=== PATIENT | male | born 1945 | race Caucasian/White ===

== ENCOUNTER 2019-11-28 07:27 | Outpatient (RCR) | payer MEDICARE, SELFPAY ==
--- NOTE | 2019-10-03 12:27 | WPDWOUNDNOTE ---
Wound Care Note Date/Time: 10/03/19 12:27 History: Mr. Mcgraw is a 74-year-old male who presented to our office to be evaluated by Dr. Napier at the request of Dr. Davis of [place], [place], for a left lower leg skin lesion. The patient had noticed the lesion for about 4 months but denied any drainage since he first noticed it. The lesion was tender and it had recently increased in size prior to his initial evaluation. The patient does have a history of hypertension, diabetes, and hyperlipidemia, as well as previous excision of a benign lesion from his left forearm in 2016. He is currently taking Plavix due to a previous CABG and cardiac stents in 2008. No known family history of skin cancer. Has a history of frequent sun exposure to his skin. 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 Because the skin and surrounding tissues were so thick and woody Dr Napier was unable to approximate wound margins following the excision. These were brought in as best as possible with Nylon sutures and then silver rope applied in the wound. Eventually the decision was made to start wound VAC therapy to promote wound healing. He tolerated this therapy well but eventually this was stopped due to the decreasing depth of the wound. The wound VAC therapy was stopped and we started dressing changes with Katiuska dressing and overlying Mepilex transfer dressing with gauze roll on top. The patient is now presenting to the wound clinic for a dressing change and wound check today. He denies any changes in the past week and is having no pain to the area of the wound. He continues to wear the ADRIANNA wrap compression bandage. His is doing well with dressing changes and has no questions today. Wound approximation: No Wound width: 1.8 cm Wound length: 3.5 cm Wound depth: 0.2 cm Drainage: None Surrounding tissue appearance: Surrounding tissue is slightly dry in appearance but intact and healthy. No signs of infection. There is good epithelialization of the wound edges. Swelling in the left lower leg continues to improve. Patient is still wearing the compression adrianna wrap. Tunneling: None Percentage granulation tissue: 100% Treatment/Procedures: Dressing change and wound inspection today. Dressings: Applied Katiuska dressing with overlying Mepilex transfer and gauze wrap with compression ADRIANNA wrap over the dressing on lower leg. Assessment and Plan Assessment and plan (1) Wound of left lower extremity: Code(s): S81.802A - Unspecified open wound, left lower leg, initial encounter Status: Acute Assessment and Plan: Assessment: There is an open wound to the left lower leg which is continuing to heal well after wound VAC therapy was stopped and changed to Katiuska dressings. The length has decreased in size by 0.5 cm since his last wound clinic visit. There are no signs of infection and he continues to do well with local wound care. Plan: Continue daily dressing changes of Katiuska covered by a Mepilex transfer and gauze wrap daily. ADRIANNA wrap for compression over left lower leg. Wound care nurses are going to order compression stockings for the patient today. F/u with Dr. Napier or myself in 2 weeks. Follow-up in the wound clinic with the nurses again in 1 week. Serial f/u every 6 months to check for lymph nodes and any recurrence in the wound bed although pathology showed complete excision.
--- NOTE | 2019-10-10 12:41 | WPDWOUNDNOTE ---
Wound Care Note Date/Time: 10/10/19 12:20 History: Mr. Mcgraw is a 74-year-old male who presented to our office to be evaluated by Dr. Napier at the request of Dr. Davis of [place], [place], for a left lower leg skin lesion. The patient had noticed the lesion for about 4 months but denied any drainage since he first noticed it. The lesion was tender and it had recently increased in size prior to his initial evaluation. The patient does have a history of hypertension, diabetes, and hyperlipidemia, as well as previous excision of a benign lesion from his left forearm in 2016. He is currently taking Plavix due to a previous CABG and cardiac stents in 2008. No known family history of skin cancer. Has a history of frequent sun exposure to his skin. 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 Because the skin and surrounding tissues were so thick and woody Dr Napier was unable to approximate wound margins following the excision. These were brought in as best as possible with Nylon sutures and then silver rope applied in the wound. Eventually the decision was made to start wound VAC therapy to promote wound healing. He tolerated this therapy well but eventually this was stopped due to the decreasing depth of the wound. The wound VAC therapy was stopped and we started dressing changes with Katiuska dressing and overlying Mepilex transfer dressing with gauze roll on top. The patient is now presenting to the wound clinic for a dressing change and wound check today. He denies any changes in the past week and is having no pain to the area of the wound. He continues to wear the ADRIANNA wrap compression bandage. His is doing well with dressing changes and has no questions today. Wound approximation: No Wound width: 1.4 cm Wound length: 2.8 cm Wound depth: 0.2 cm Drainage: None Surrounding tissue appearance: Surrounding tissue is intact and healthy. No signs of infection. There is good epithelialization of the wound edges. Swelling in the left lower leg continues to improve. Patient is still wearing the compression adrianna wrap. Tunneling: None Percentage granulation tissue: 100% Treatment/Procedures: Dressing change and wound inspection today. Dressings: Katiuska dressing with overlying Mepilex transfer and gauze wrap with compression ADRIANNA wrap over the dressing on the lower leg. Ordered compression stockings today. Assessment and Plan Assessment and plan (1) Wound of left lower extremity: Qualifiers: Encounter type: subsequent encounter Qualified Code(s): S81.802D - Unspecified open wound, left lower leg, subsequent encounter Code(s): S81.802A - Unspecified open wound, left lower leg, initial encounter Status: Acute Assessment and Plan: Assessment: There is an open wound to the left lower leg which is continuing to heal well with local wound care and Katiuska dressings. The length and width have decreased in size since his last wound clinic visit. There are no signs of infection and he continues to do well with local wound care. Plan: Today we discussed the options of continuing local wound care versus applying a skin graft to this wound. Dr. Napier discussed that the wound graft is an option and would promote quicker epithelialization of the wound and hopefully help this wound to heal quicker but would also create a superficial wound where the skin donor site would be. The patient would like to continue with local wound care at this time, and he understands that this may take longer to heal versus the skin graft. Therefore, we will continue daily dressing changes of Katiuska covered by a Mepilex transfer and gauze wrap daily. Ordered compression stockings for the patient today and will try to get them approved through insurance. ADRIANNA wrap for compression over le
== END 2019-12-29 12:28 | disposition home or self-care (01) ==
LOC: ANHWOC 07:27
PROVIDERS: PCP Internal Medicine; Visit Provider Surgery
DX: Z48.00 Encounter for change or removal of nonsurgical wound dressing (principal); S81.802D Unspecified open wound, left lower leg, subsequent encounter
CPT/HCPCS: 99212; A9270; G0463